=== PATIENT | male | born 1980 | race Caucasian/White ===

== ENCOUNTER 2018-09-23 10:56 | Emergency (ER) | payer OTHER ==
[2018-09-23] MEDS ORDERED: Lidocaine 1%* 5 ML VIAL INJ ONE (11:37)
--- NOTE | 2018-09-23 11:45 | ED ---
Skin Complaint - HPI Summary HPI Summary: 38-year-old male presents with a cyst on left side face for the past couple months. The cyst has been getting bigger. No fevers or chills. never had this before. no history of mrsa No medical conditions. - History of Current Complaint Chief Complaint: UCSkin Time Seen by Provider: 09/23/18 11:30 Stated Complaint: SKIN ISSUE Pain Intensity: 2 - Allergy/Home Medications Allergies/Adverse Reactions: Allergies Allergy/AdvReac Type Severity Reaction Status Date / Time No Known Allergies Allergy Verified 09/23/18 11:10 PMH/Surg Hx/FS Hx/Imm Hx Endocrine/Hematology History: Denies: Hx Anticoagulant Therapy Respiratory History: Denies: Hx Asthma - Surgical History Surgery Procedure, Year, and Place: app[facility] Infectious Disease History: No Infectious Disease History: Denies: Traveled Outside the [place] in Last 30 Days - Family History Known Family History: Positive: Non-Contributory - Social History Alcohol Use: Occasionally Substance Use Type: Reports: None Smoking Status (MU): Never Smoked Tobacco Review of Systems Negative: Fever Negative: Chest Pain Negative: Shortness Of Breath Positive: Rash All Other Systems Reviewed And Are Negative: Yes Physical Exam Triage Information Reviewed: Yes Vital Signs On Initial Exam: Initial Vitals Temp Pulse Resp BP Pulse Ox 98 F 68 16 130/77 100 09/23/18 11:07 09/23/18 11:07 09/23/18 11:07 09/23/18 11:07 09/23/18 11:07 Vital Signs Reviewed: Yes Appearance: Positive: Well-Appearing Skin: Positive: Warm, Dry, Other - cyst on left side of face near left ear Head/Face: Positive: Normal Head/Face Inspection Eyes: Positive: Normal, EOMI, EUSEBIO, Conjunctiva Clear ENT: Positive: Pharynx normal Respiratory/Lung Sounds: Positive: Clear to Auscultation, Breath Sounds Present Cardiovascular: Positive: Normal, RRR Musculoskeletal: Positive: Normal Neurological: Positive: Normal Psychiatric: Positive: Normal Procedures - Incision and Drainage face Site: left side face Anesthesia: Local Instrument(s): Scalpel Diagnostics - Vital Signs Vital Signs Temp Pulse Resp BP Pulse Ox 09/23/18 11:07 98 F 68 16 130/77 100 - Laboratory Lab Statement: Any lab studies that have been ordered have been reviewed, and results considered in the medical decision making process. Course/Dx - Course Course Of Treatment: 38-year-old male presents with a cyst on left side face for the past couple months. The cyst has been getting bigger. No fevers or chills. never had this before. no history of mrsa No medical conditions. On exam cyst left-sided face. ID&D the area and got cystic fluid. We'll place on Keflex. Got a wound culture to make sure not infected. told place heat on the area. told establish care with primary to follow blood pressure. Patient understands agrees plan. - Differential Diagnoses - Skin Complaint Differential Diagnoses: Abscess, Cellulitis, Contact Dermatitis - Diagnoses Provider Diagnoses: Cyst of face Discharge - Sign-Out/Discharge Documenting (check all that apply): Patient Departure All imaging exams completed and their final reports reviewed: No Studies - Discharge Plan Condition: Good Disposition: HOME Prescriptions: Cephalexin CAP* [Keflex CAP*] 500 mg PO BID #20 cap Patient Education Materials: Incision and Drainage (ED) Referrals: No Primary Care Phys,NOPCP [Primary Care Provider] - Additional Instructions: Take antibiotic twice a day for 10 days Apply warm compresses to area Take ibuprofen or Tylenol for pain every 6 hours establish care with primary Return to ED if any new or worsening symptoms - Billing Disposition and Condition Condition: GOOD Disposition: Home
--- NOTE | 2018-09-24 07:14 | UC ---
- Progress Note Progress Note: On cephalexin. Cx pending. Course/Dx - Diagnoses Provider Diagnoses: Cyst of face Discharge - Sign-Out/Discharge Documenting (check all that apply): Post-Discharge Follow Up All imaging exams completed and their final reports reviewed: No Studies - Discharge Plan Condition: Good Disposition: HOME Prescriptions: Cephalexin CAP* [Keflex CAP*] 500 mg PO BID #20 cap Patient Education Materials: Incision and Drainage (ED) Referrals: No Primary Care Phys,NOPCP [Primary Care Provider] - Additional Instructions: Take antibiotic twice a day for 10 days Apply warm compresses to area Take ibuprofen or Tylenol for pain every 6 hours establish care with primary Return to ED if any new or worsening symptoms - Billing Disposition and Condition Condition: GOOD Disposition: Home
== END 2018-09-23 12:15 | disposition home or self-care (01) ==
LOC: UCEAST 10:56 → EDSEX 10:56 → UCEAST 12:15
DX: L72.3 Sebaceous cyst (principal)
CPT/HCPCS: 10060; 87070; 87077; 87205; 87640; 87641; 99202; G0463